=== PATIENT | male | born 1955 | race Caucasian/White ===

== ENCOUNTER 2025-06-27 10:30 | Emergency (ER) | payer MEDICARE, SELFPAY ==
[2025-06-27 10:30] VITALS: BP 116/65; PULSE 87; RESP 15; TEMP 36.4; O2SAT 94
[2025-06-27 10:49] VITALS: PULSE 84
--- OUTSIDE RECORDS SUMMARY | 2025-06-27 11:16 | XMS_ITS | Patient Health Record ---
Author Organization [facility] [employer] Address [address] [facility] [address] [place] [address] Care Team Providers Care Supervisor Dyer Name Role Phone Mayco Edwards Unavailable [phone] Reason For Referral No Information Plan Of Treatment No Information
[2025-06-27 11:35] VITALS: BP 98/67; PULSE 77; RESP 16; O2SAT 95
--- NOTE | 2025-06-27 12:01 | ED.GENADULT ---
HPI - General Adult General Chief complaint: Unspecified Stated complaint: agitated Time Seen by Provider: 06/27/25 10:39 Source: patient and EMS Mode of arrival: EMS Limitations: no limitations History of Present Illness HPI narrative: This is a 69-year-old male that presents to the emergency department for agitation. Patient with history of polysubstance abuse. Reports last using fentanyl and Xanax last night. Reports he buys Xanax as he is unable to get it from his primary provider. His girlfriend called EMS today due to him being agitated this morning. He is calm, cooperative, has no complaints currently Related Data Allergies Allergy/AdvReac Type Severity Reaction Status Date / Time No Known Allergies Allergy Verified 06/27/25 10:47 Review of Systems Review of Systems: All systems reviewed & are unremarkable except as noted in HPI and below PMFSH Past Medical History Medical History (Updated 06/27/25 @ 12:18 by Jazmin Johnson PA-C) History of COPD History of hypertension Polysubstance abuse Social History Social History (Updated 06/27/25 @ 12:14 by Jazmin Johnson PA-C) Substance use: current Substance use type: opiates and other Other substance usage details: benzodiazepines Exam Narrative: GENERAL: Well-appearing, well-nourished, and in no acute distress. HEAD: Normocephalic, atraumatic. EYES: PERRLA and EOMI. ENT: Nares clear, no rhinorrhea or epistaxis. Mucous membranes moist. Oropharynx without tonsillar hypertrophy exudate or other lesions. Bilateral TMs pearly lewis non-bulging NECK: Supple. No adenopathy or masses. CHEST: Clear to auscultation. No respiratory distress. No wheezes rales or rhonchi HEART: Regular rate and rhythm. No murmur heard. Normal peripheral pulses. EXTREMITIES: Normal range of motion. No edema. SKIN: Warm, dry, no rash. NEURO: No focal deficits. Alert and oriented x3. Normal gait PSYCH: Normal mood and affect Course Vital Signs Vital signs: Vital Signs Temperature 97.5 F L 06/27/25 10:30 Pulse Rate 87 06/27/25 10:30 Respiratory Rate 15 06/27/25 10:30 Blood Pressure 116/65 06/27/25 10:30 Pulse Oximetry 94 06/27/25 10:30 Oxygen Delivery Room Air 06/27/25 10:30 Temperature 97.5 F L 06/27/25 10:30 Pulse Rate 77 06/27/25 11:35 Respiratory Rate 16 06/27/25 11:35 Blood Pressure 98/67 L 06/27/25 11:35 Pulse Oximetry 95 06/27/25 11:35 Oxygen Delivery Room Air 06/27/25 10:30 Medical Decision Making MDM Narrative Medical decision making narrative: Patient's girlfriend called EMS due to patient being agitated. History of polysubstance abuse. He has no complaints, is alert and oriented. Cooperative in the ER. Monitored for 2 hours. Does not want any further evaluation. Will find a ride home Vital Signs Vital Signs: Vital Signs Temperature 97.5 F L 06/27/25 10:30 Pulse Rate 87 06/27/25 10:30 Respiratory Rate 15 06/27/25 10:30 Blood Pressure 116/65 06/27/25 10:30 Pulse Oximetry 94 06/27/25 10:30 Oxygen Delivery Room Air 06/27/25 10:30 Temperature 97.5 F L 06/27/25 10:30 Pulse Rate 77 06/27/25 11:35 Respiratory Rate 16 06/27/25 11:35 Blood Pressure 98/67 L 06/27/25 11:35 Pulse Oximetry 95 06/27/25 11:35 Oxygen Delivery Room Air 06/27/25 10:30 Critical Care Time Critical Care Time Critical Care Time: No Discharge Plan Discharge Clinical Impression: Polysubstance abuse Patient Disposition: Home Condition: Stable Instructions: Polysubstance Use Disorder (ED) Additional Instructions: Return to the emergency department if you experience fever, chest pain, shortness of breath, abdominal pain with nausea and vomiting, weakness, numbness, or any other symptoms that are concerning to you. Follow up with primary care doctor Patient Language: Urdu Follow-up/Referrals: UNKNOWN,DOCTOR [Primary Care Provider]
[2025-06-27 12:23] VITALS: BP 117/68; PULSE 84; RESP 16; TEMP 36.4; O2SAT 96
== END 2025-06-27 12:25 | disposition home or self-care (01) ==
PROVIDERS: Emergency Provider Physician Assistant
DX: F19.10 Other psychoactive substance abuse, uncomplicated (principal); J44.9 Chronic obstructive pulmonary disease, unspecified; I10 Essential (primary) hypertension
CPT/HCPCS: 99284